=== PATIENT | female | born 1960 | race Caucasian/White ===

== ENCOUNTER 2024-07-24 12:54 | Inpatient (IN) | payer OTHER ==
[2024-07-24 13:50] VITALS: BMI 38.3
[2024-07-24] MEDS ORDERED: BENZOCAINE/MENTHOL (CHLORASEPTIC ) LOZENGE MM PRN (15:05)
[2024-07-24] MEDS ORDERED: hydrOXYzine PAMOATE 25 MG CAPSULE (FP) PO PRN (15:05)
[2024-07-24] MEDS ORDERED: LOPERAMIDE HCL 2 MG CAPSULE PO PRN (15:05)
[2024-07-24] MEDS ORDERED: ACETAMINOPHEN 325 MG TABLET (FP) PO PRN (15:05)
[2024-07-24] MEDS ORDERED: BENZONATATE 200 MG CAPSULE PO PRN (15:05)
[2024-07-24] MEDS ORDERED: IBUPROFEN 400 MG TABLET (FP) PO PRN (15:05)
[2024-07-24] MEDS ORDERED: MAG HYDROX/AL HYDROX/SIMETH 30 ML UNIT-DOSE CUP PO PRN (15:05)
[2024-07-24] MEDS ORDERED: NALOXONE (NYS OPIOID OVERDOSE PROGRAM) 4 MG/0.1 ML SPRAY NS PRN (15:05)
[2024-07-24] MEDS ORDERED: NALOXONE (NARCAN) HCL 4 MG/0.1 ML SPRAY NS PRN (15:05)
[2024-07-24] MEDS ORDERED: guaiFENesin 600 MG TABLET.ER (FP) PO PRN (15:05)
[2024-07-24] MEDS ORDERED: POLYETHYLENE GLYCOL (HEALTHYLAX) 3350 17 GM PACKET PO PRN (15:05)
[2024-07-24] MEDS ORDERED: MAGNESIUM HYDROX 2400MG/30ML ORAL SUSPENSION 30 ML CUP PO PRN (15:05)
[2024-07-24] MEDS ORDERED: GABAPENTIN 100 MG CAPSULE ONE (16:14)
[2024-07-24] MEDS ORDERED: ASPIRIN 81 MG CHEWABLE TABLETS ONE (16:14)
[2024-07-24] MEDS: ASPIRIN COATED 81 MG TABLET.EC PO SCH (16:19)
[2024-07-24] MEDS: GABAPENTIN 300 MG CAPSULE PO SCH (16:19)
[2024-07-24] MEDS ORDERED: TUBERCULIN PPD 5 TU/0.1ML VIAL ID ONE (18:47)
[2024-07-24] MEDS: EMPAGLIFLOZIN (JARDIANCE) 10 MG TABLET PO SCH (18:59)
[2024-07-24] MEDS: ATORVASTATIN CA 40 MG TABLET (FP) PO SCH (21:34)
[2024-07-24] MEDS: levETIRAcetam 500 MG TABLET (FP) PO SCH (21:34)
[2024-07-24] MEDS: THIAMINE 100 MG TABLET PO SCH (21:34)
[2024-07-24] MEDS: MELATONIN 5 MG TABLETS PO SCH (21:34)
[2024-07-24] MEDS: MONTELUKAST NA 10 MG TABLET PO SCH (21:34)
[2024-07-24] MEDS: IBUPROFEN 600 MG TABLET (FP) PO PRN (21:38)
[2024-07-24] MEDS: SACUBITRIL/VALSARTAN 97 MG-103 MG TABLET PO SCH (22:28)
[2024-07-25] MEDS: MELATONIN 5 MG TABLETS PO ONE (01:48)
[2024-07-25] MEDS ORDERED: FUROSEMIDE 40 MG TABLET (FP) PO SCH ×2 (10:00)
[2024-07-25] MEDS: FUROSEMIDE 40 MG, FUROSEMIDE 20 MG PO SCH (10:23)
[2024-07-25] MEDS: PRENATAL VITAMINS W/ FOLIC ACID TABLET (FP) PO SCH (10:26)
[2024-07-25] MEDS: SPIRONOLACTONE 25 MG TABLET PO SCH (12:41)
[2024-07-25 12:42] LABS: HEMATOCRIT 30.8 % (32.4-45.2); HEMOGLOBIN 8.9 GM/dL (10.7-15.3); MCH 21.4 pg (25.7-33.7); MEAN CELL VOLUME 73.6 fl (80-96); PLATELET COUNT 313 10^3/uL (134-434); RBC 4.18 M/mm3 (3.60-5.2); RDW 21.6 % (11.6-15.6); WHITE BLOOD COUNT 12.2 K/mm3 (4.0-10.0)
[2024-07-25] MEDS: FLUTICASONE/UMECLIDIN/VILANTER(100-62.5-25 TRELEGY ELLIPTA) INAHLER IH SCH (12:42)
[2024-07-25 13:08] LABS: CHLORIDE 105 mmol/L (98-107); POTASSIUM 4.4 mmol/L (3.5-5.1); SODIUM 141 mmol/L (136-145)
[2024-07-25 13:14] LABS: ALBUMIN 3.2 g/dl (3.4-5.0)
[2024-07-25 13:15] LABS: ANION GAP 6 mmol/L (4-13); CALCIUM 9.5 mg/dL (8.5-10.1); CO2 30 mmol/L (21-32); GLUCOSE,RANDOM 105 mg/dL (74-106)
[2024-07-25 13:17] LABS: CREATININE 1.3 mg/dL (0.55-1.3)
[2024-07-25 13:18] LABS: SGPT/ALT 14 U/L (13-61)
[2024-07-25 13:21] LABS: BILIRUBIN,TOTAL 0.4 mg/dL (0.2-1); TOT PROT 6.8 g/dl (6.4-8.2)
[2024-07-25 13:23] LABS: ALK PHOS 113 U/L (45-117)
[2024-07-25 13:30] LABS: SGOT/AST 16 U/L (15-37)
[2024-07-25 18:17] LABS: EPI CELLS 4 /uL (0-25.1); HYALINE CASTS 0 /uL (0-3.1); URINE APPEARANCE CLOUDY; URINE BACTERIA 2545 /uL (0-1359); URINE BILIRUBIN NEGATIVE (NEGATIVE); URINE COLOR YELLOW; URINE GLUCOSE (UA) 1+ (NEGATIVE); URINE KETONE NEGATIVE (NEGATIVE); URINE LEUK ESTERASE 3+ (NEGATIVE); URINE NITRITE NEGATIVE (NEGATIVE); URINE PROTEIN NEGATIVE (NEGATIVE); URINE RBC 22 /uL (0-23.9); URINE WBC 1280 /uL (0-25.8)
[2024-07-25] MEDS: ALBUTEROL SO4 HFA INHALER IH PRN (22:05)
[2024-07-26] MEDS: MELATONIN 5 MG TABLETS PO ONE (00:44)
[2024-07-26 07:06] VITALS: BP 109/68; PULSE 76; RESP 16; TEMP 97.5
== END 2024-07-26 10:35 | disposition home or self-care (01) | DRG 772 ==
LOC: YASAS 12:54 → Y5N 15:58
PROVIDERS: ADMIT Psychiatry & Neurology Pain Medicine; ATTEND Psychiatry & Neurology Pain Medicine
PROC: HZ42ZZZ Group Counseling for Substance Abuse Treatment, Cognitive-Behavioral (ICD-10-PCS; principal; 2024-07-24)
DX: F10.20 Alcohol dependence, uncomplicated (principal); F12.20 Cannabis dependence, uncomplicated; G40.109 Localization-related (focal) (partial) symptomatic epilepsy and epileptic syndromes with simple partial seizures, not intractable, without status epilepticus; I25.10 Atherosclerotic heart disease of native coronary artery without angina pectoris; I11.0 Hypertensive heart disease with heart failure; I50.9 Heart failure, unspecified; I25.2 Old myocardial infarction; J44.9 Chronic obstructive pulmonary disease, unspecified; Z95.5 Presence of coronary angioplasty implant and graft; Z95.810 Presence of automatic (implantable) cardiac defibrillator; Z87.891 Personal history of nicotine dependence; Z88.0 Allergy status to penicillin; Z98.84 Bariatric surgery status
CPT/HCPCS: 36415; 80053; 80305; 80307; 81003; 82962; 85027; 86780; 87811; 93005; 93010